=== PATIENT | female | born 1945 | race Caucasian/White ===

== ENCOUNTER 2018-07-15 02:45 | Inpatient (IN) | payer MEDICARE ==
[~2018-07-15] VITALS: Ht 154.9 cm; Wt 60.3 kg
--- NOTE | 2018-07-15 02:55 | NUR ---
PT BIBRA60 FOR SOB X1 DAY, GIVEN ALBUTEROL X1 IN AM, FELT BETTER, THEN FELT SOB AGAIN, CALLED 911, GIVEN ALBUTEROL X1 EN ROUTE. PT IS CURRENTLY 96% RA. PT AAOX4. RESPIRATIONS EVEN AND UNLABORED. BILATERAL WHEEZING NOTED. NAD NOTED. VSS. PT IN GOWN AND PLACED ON MONITOR.
[2018-07-15] MEDS ORDERED: ALBUTEROL FS 2.5 MG/3 ML VIAL.NEB ONE (02:57)
[2018-07-15] MEDS ORDERED: IPRATROPIUM NEB FS 0.5 MG/2.5 ML AMPUL.NEB ONE (02:57)
[2018-07-15] MEDS ORDERED: ALBUTEROL FS 2.5 MG/3 ML VIAL.NEB CONTNEB ONE (03:00)
[2018-07-15] MEDS ORDERED: IPRATROPIUM NEB FS 0.5 MG/2.5 ML AMPUL.NEB NEB ONE (03:00)
--- NOTE | 2018-07-15 03:05 | NUR ---
RT AT BEDSIDE
--- NOTE | 2018-07-15 03:10 | NUR ---
INITIATED IV SITE RIGHT AC 18G. BLOOD OBTAINED. LAVENDER FARM WORKER AT BEDSIDE FOR COLLECTION.
[2018-07-15 03:19] LABS: BASOPHILS % (AUTO) 0.1 % (0.0-2.0); EOSINOPHILS % (AUTO) 3.1 % (0.0-6.0); HEMATOCRIT 27 % (33-45); HEMOGLOBIN 8.9 g/dL (11.5-14.8); LYMPHOCYTES # (AUTO) 0.1 /CMM (0.8-4.8); LYMPHOCYTES % (AUTO) 3.5 % (20.0-44.0); MEAN CORPUSCULAR HEMOGLOBIN 34 PG (26.0-33.0); MEAN CORPUSCULAR HGB CONC 33 g/dl (31.0-36.0); MEAN CORPUSCULAR VOLUME 104 fL (82-100); MONOCYTES # (AUTO) 0.3 /CMM (0.1-1.30); MONOCYTES % (AUTO) 7.7 % (2.0-12.0); NEUTROPHILS % (AUTO) 85.6 % (43.0-81.0); PLATELET COUNT (AUTO) 121 /CMM (150-450); RDW COEFFICIENT OF VARIATION 18.8 (11.5-15.0); WHITE BLOOD COUNT (AUTO) 3.6 K/uL (4.3-11.0)
[2018-07-15 03:27] LABS: CALCIUM, SERUM 8.3 mg/dL (8.5-10.1); CARBON DIOXIDE 27 mmol/L (21-32); CHLORIDE 106 mmol/L (98-107); CREATININE 0.5 mg/dL (0.6-1.3); GLUCOSE 119 mg/dL (74-106); POTASSIUM 3.4 mmol/L (3.5-5.1); SODIUM SERUM 143 mmol/L (136-145); UREA NITROGEN, BLOOD 11 mg/dL (7-18)
[2018-07-15 03:35] LABS: TROPONIN I 0.036 ng/mL (0.00-0.056)
--- NOTE | 2018-07-15 03:35 | NUR ---
RADIOLOGIST AT BEDSIDE FOR CXR
[2018-07-15 03:39] LABS: B-TYPE NATRIURETIC PEPTIDE 6538 PG/ML (0-125)
[2018-07-15] MEDS ORDERED: FUROSEMIDE 20 MG/2 ML VIAL IV ONE (04:00)
[2018-07-15] MEDS ORDERED: FUROSEMIDE 20 MG/2 ML VIAL ONE (04:03)
--- NOTE | 2018-07-15 04:35 | NUR ---
CALLED [facility] FOR PENDING CXR RESULTS. TO BE READ NEXT.
--- NOTE | 2018-07-15 05:07 | NUR ---
CALLED [facility] FOR UPDATE ON CXR REPORT. STATES THEY WILL HAVE IT READ SOON
--- NOTE | 2018-07-15 05:12 | NUR ---
CALLED [facility] PANEL FOR ADMISSION.
--- NOTE | 2018-07-15 05:14 | NUR ---
CALLED RN SUP FOR TELE BED.
--- NOTE | 2018-07-15 05:39 | NUR ---
PT ASSIGNED TO [facility] 113-2
[2018-07-15] MEDS ORDERED: NITROGLYCERIN 0.4 MG/TAB BOTTLE SL PRN (06:00)
[2018-07-15] MEDS ORDERED: AZITHROMYCIN 500 MG in IV D5W 250 ML IV SCH (06:00)
[2018-07-15] MEDS ORDERED: CLONIDINE HCL 0.1 MG TABLET PO PRN ×2 (06:00→08:00)
--- NOTE | 2018-07-15 06:15 | NUR ---
GAVE REPORT TO GEORGE FOR DARSHAN FOR BED 113-2
--- NOTE | 2018-07-15 06:28 | NUR ---
PT TRANSFERRED TO [facility] 113-2 PER [facility]S PROTOCOLS
[2018-07-15 06:30] VITALS: BP 158/87
[2018-07-15] MEDS ORDERED: POTASSIUM CHLORIDE 20 MEQ TAB.PRT.SR PO ONE ×2 (06:30→13:30)
--- NOTE | 2018-07-15 06:30 | NUR ---
PHARMACY TECHNICIAN TRAINEEGRADES 1 THRU 6 HOME TEACHER NOTES: PT ADMITTED FROM ER VIA [facility] WITH A DIAGNOSIS OF CHF/ASTHMA EXACERBATION. ALERT AND ORIENTED X4. ABLE TO MAKE NEEDS KNOWN. NO ACUTE DISTRESS NOTED. DENIES PAIN AND DISCOMFORT. ON O2 2LPM NASAL CANNULA, NO SOB NOTED AT THIS TIME. IV ON RIGHT ANTECUBITAL #18 INTACT AND PATENT, FLUSHING WELL. PT ABLE TO AMBULATE WITH ASSISTANCE. PERTINENT ASSESSMENT DONE. SCAB ON LEFT LOWER LEG NOTED, PICTURE TAKEN AND PLACED ON CHART. BELONGINGS LIST SIGNED. CALL LIGHT PLACED WITHIN REACH. KEPT CLEAN, DRY AND COMFORTABLE. SAFETY AND FALL PRECAUTIONS OBSERVED AND MAINTAINED. WILL ENDORSE TO DAY SHIFT FOR CONTINUITY OF CARE.
[2018-07-15 06:45] LABS: IRON, SERUM 51 ug/dl (50-175); TOTAL IRON BINDING CAPACITY 324 ug/dl (250-450)
[2018-07-15] MEDS: ENOXAPARIN SODIUM 40 MG/0.4 ML DISP.SYRIN SQ SCH (06:53)
[2018-07-15] MEDS ORDERED: POTA8TAB8 PO (07:30)
[2018-07-15] MEDS ORDERED: HYDR-3972 PO (07:30)
[2018-07-15] MEDS ORDERED: FLUT1DIS3 IH (07:30)
[2018-07-15] MEDS ORDERED: PARO40TA4 PO (07:30)
[2018-07-15] MEDS ORDERED: CARV6.252 PO (07:30)
[2018-07-15] MEDS ORDERED: GABA600T2 PO (07:30)
--- NOTE | 2018-07-15 07:45 | NUR ---
TAILOR GARMENT FITTER NOTE: RECEIVED PATIENT IN BED, AWAKE, ALERT AND VERBALLY RESPONSIVE. RESPIRATION EVEN AND UNLABORED, SATURATING 95% W/ O2 2L/MIN VIA NC. PATIENT VERBALIZED PAIN ON HER (R) LOWER BACK /, BUT OF RIGHT NOW SHE VERBALIZED THAT IT WAS TOLERABLE. ON CARPENTER GENERAL, SR HR 92. HOB ELEVATED. CALL LIGHT WITHIN REACH. BEDSIDE COMMODE PRESENT AT THE BEDSIDE. (R) AC IV LINE INTACT AND PATENT. AND WILL FOLLOW-UP WITH THE PHARMACY RE: THE AZITHROMYCIN IV THAT WAS SCHEDULED AT 0600. MEDICATION WAS UNABLE PER PM NURSE DURING CHANGE OF SHIFT REPORT.
[2018-07-15 08:00] VITALS: BP 158/86
[2018-07-15] MEDS: AZITHROMYCIN 500 MG in IV D5W 250 ML IV SCH (08:21)
--- NOTE | 2018-07-15 08:30 | NUR ---
DRIVER GUARD NOTE: INFORMED DR. MIGUEL RE: THE PATIENT'S MEDICATION RECONCILIATION. AND PER MD, HE WILL TAKE CARE OF IT WHEN HE MAKES HIS ROUNDS. PATIENT MADE AWARE.
[2018-07-15] MEDS: IPRATROPIUM NEB FS 0.5 MG/2.5 ML AMPUL.NEB NEB SCH ×3 (08:31→20:26)
[2018-07-15] MEDS: ALBUTEROL FS 2.5 MG/0.5 ML VIAL.NEB NEB SCH ×3 (08:32→20:26)
[2018-07-15] MEDS ORDERED: predniSONE 50 MG TABLET PO SCH (09:00)
[2018-07-15] MEDS ORDERED: FUROSEMIDE 40 MG/4 ML VIAL IV SCH (09:00)
--- NOTE | 2018-07-15 09:34 | NUR ---
INITIAL ECHO SHOWED EF OF 35%~. ADVISED DR. PAZ OF PRELIMINARY RESULTS.
[2018-07-15] MEDS: POTASSIUM CHLORIDE 20 MEQ TAB.PRT.SR PO SCH ×3 (10:40→13:00)
[2018-07-15] MEDS: predniSONE 10 MG TABLET PO SCH (10:40)
[2018-07-15] MEDS: FUROSEMIDE 40 MG/4 ML VIAL IV SCH ×3 (10:40→18:51)
[2018-07-15 11:36] LABS: MAGNESIUM 2.1 mg/dL (1.8-2.4)
[2018-07-15 11:56] LABS: THYROID STIMULATING HORMONE 4.91 uIU/mL (0.358-3.74)
[2018-07-15 12:00] VITALS: BP 145/65
[2018-07-15] MEDS: HYDROCODONE/APAP 5/325MG 1 EACH TABLET PO PRN ×2 (13:41→22:12)
--- NOTE | 2018-07-15 15:56 | NUR ---
PT REFUSED RESP TX AT THIS TIME. NO S/S OF SOB NOTED. WILL CONT TO MONITOR Addendum: 07/15/18 at 1556 by RICH MENDOZA RT Amended: Links added.
[2018-07-15 16:00] VITALS: BP 153/83
[2018-07-15] MEDS: CARVEDILOL 6.25 MG TABLET PO SCH (16:49)
[2018-07-15] MEDS: GABAPENTIN 300 MG CAPSULE PO SCH (16:49)
[2018-07-15] MEDS: POTASSIUM CHLORIDE 10 MEQ TABLET.SA PO SCH (16:49)
[2018-07-15] MEDS ORDERED: FLUTICASONE/SALMETEROL DISKUS IH SCH (17:00)
--- NOTE | 2018-07-15 19:35 | NUR ---
NARROW FABRIC CALENDERER NOTE: PATIENT ON STABLE CONDITION. NO CHANGE OF CONDITION NOTED. REPORT GIVEN TO PM SHIFT NURSE FOR CONTINUITY OF CARE.
[2018-07-15 20:00] VITALS: BP 148/75
--- NOTE | 2018-07-15 20:00 | NUR ---
COMMERCIAL TRAILER TRUCK DRIVER NOTE: RECEIVED PATIENT REPORT FROM AM NURSE. PATIENT IN BED, AWAKE, ALERT AND VERBALLY RESPONSIVE. RESPIRATION EVEN AND UNLABORED, SATURATING 95% W/ O2 2L/MIN VIA NC. PATIENT VERBALIZED PAIN ON HER (R) LOWER BACK 5/10 AND ASKED FOR PAIN MANAGEMENT. ON EXPERIMENTAL MECHANIC SPACECRAFT, SR WITH BBB HR 91. HOB ELEVATED. CALL LIGHT WITHIN REACH. BEDSIDE COMMODE PRESENT AT THE BEDSIDE. (R)WRIST IV LINE INTACT AND PATENT. ALL SAFETY MEASURES ARE IMPLEMENTED, BED IN LOWEST, LOCKED POSITION. WILL CONT. TO MONITOR.
[2018-07-16] VITALS: BP 126/58
[2018-07-16] MEDS: IPRATROPIUM NEB FS 0.5 MG/2.5 ML AMPUL.NEB NEB SCH ×4 (00:55→20:24)
[2018-07-16] MEDS: ALBUTEROL FS 2.5 MG/0.5 ML VIAL.NEB NEB SCH ×4 (00:55→20:24)
[2018-07-16 04:00] VITALS: BP 129/69
[2018-07-16 06:26] LABS: HEMATOCRIT 25 % (33-45); HEMOGLOBIN 8.4 g/dL (11.5-14.8); MEAN CORPUSCULAR HEMOGLOBIN 35 PG (26.0-33.0); MEAN CORPUSCULAR HGB CONC 34 g/dl (31.0-36.0); MEAN CORPUSCULAR VOLUME 103 fL (82-100); PLATELET COUNT (AUTO) 101 /CMM (150-450); RDW COEFFICIENT OF VARIATION 18.2 (11.5-15.0); RED BLOOD CELL COUNT(AUTO) 2.42 MIL/uL (4.0-5.2); WHITE BLOOD COUNT (AUTO) 2.8 K/uL (4.3-11.0)
--- NOTE | 2018-07-16 06:43 | NUR ---
[facility] RN NOTE: PATIENT IN BED RESTING COMFORTABLY. PATIENT ON STABLE CONDITION. NO CHANGE OF CONDITION NOTED DURING MY SHIFT. IV LINE RIGHT AC IS PATIENT, INTACT.REPORT WILL BE GIVEN TO AM SHIFT NURSE FOR CONTINUITY OF CARE.
[2018-07-16 06:46] LABS: ALANINE AMINOTRANSFERASE 22 U/L (12-78); ALKALINE PHOSPHATASE 53 U/L (46-116); ASPARTATE AMINOTRANSFERASE 32 U/L (15-37); BILIRUBIN,TOTAL 0.4 mg/dL (0.2-1.0); CALCIUM, SERUM 8.4 mg/dL (8.5-10.1); CARBON DIOXIDE 30 mmol/L (21-32); CHLORIDE 107 mmol/L (98-107); CREATININE 0.8 mg/dL (0.6-1.3); GLUCOSE 89 mg/dL (74-106); MAGNESIUM 2.1 mg/dL (1.8-2.4); POTASSIUM 3.4 mmol/L (3.5-5.1); SODIUM SERUM 142 mmol/L (136-145); TOTAL PROTEIN, SERUM 6.4 g/dL (6.4-8.2); UREA NITROGEN, BLOOD 23 mg/dL (7-18)
[2018-07-16 06:47] LABS: TROPONIN I 0.028 ng/mL (0.00-0.056)
[2018-07-16 06:55] LABS: CHOLESTEROL 202 mg/dL (<200); HDL CHOLESTEROL 78 mg/dL (40-60); LDL 121 mg/dL (0-99); THYROID STIMULATING HORMONE 1.451 uIU/mL (0.358-3.74); TRIGLYCERIDES 113 mg/dL (30-150)
--- NOTE | 2018-07-16 07:10 | NUR ---
HELICOPTER OFFICER OPENING NOTE RECEIVED PATIENT RESTING IN BED IN STABLE CONDITION, ON OXYGEN VIA NASAL CANNULA AT 2LPM. NO RESPIRATORY DISTRESS NOTED, ABLE TO MAKE NEEDS KNOWN. IV SITE SALINE LOCK ON RIGHT WRIST GAUGE 22. BED LOW AND LOCKED, CALL LIGHT WITHIN REACH, WILL CONTINUE TO MONITOR.
[2018-07-16 08:00] VITALS: BP 141/77
[2018-07-16] MEDS: FLUTICASONE/VILANTEROL 1 EACH BLST.W.DEV IH SCH (08:30)
[2018-07-16] MEDS: AZITHROMYCIN 500 MG in IV D5W 250 ML IV SCH (08:32)
[2018-07-16] MEDS: GABAPENTIN 300 MG CAPSULE PO SCH ×2 (08:33→17:50)
[2018-07-16] MEDS: HYDROCODONE/APAP 5/325MG 1 EACH TABLET PO PRN ×2 (08:33→13:16)
[2018-07-16] MEDS: POTASSIUM CHLORIDE 10 MEQ TABLET.SA PO SCH ×2 (08:33→17:50)
[2018-07-16] MEDS: predniSONE 10 MG TABLET PO SCH (08:34)
[2018-07-16] MEDS: CARVEDILOL 6.25 MG TABLET PO SCH ×2 (08:34→17:51)
[2018-07-16] MEDS: PAROXETINE HCL 20 MG TABLET PO SCH (08:35)
[2018-07-16 09:46] LABS: BAND % (MANUAL) 6 % (0.0-5.0); BASOPHILS % (MANUAL) 0 % (0.0-2.0); EOSINOPHILS % (MANUAL) 0 % (0-4); LYMPHOCYTES % (MANUAL) 6 % (16-48); MONOCYTES % (MANUAL) 12 % (0-11.0); NEUTROPHILS % (MANUAL) 76 (42-76)
[2018-07-16] MEDS: ENOXAPARIN SODIUM 40 MG/0.4 ML DISP.SYRIN SQ SCH (11:54)
[2018-07-16 12:00] VITALS: BP 128/81
[2018-07-16] MEDS ORDERED: POTASSIUM CHLORIDE 20 MEQ TAB.PRT.SR PO SCH (12:00)
[2018-07-16 16:00] VITALS: BP 115/72
--- NOTE | 2018-07-16 19:16 | NUR ---
PAINTER ROUGH NOTES RECEIVED PT ON BED. A/O X 4. ON ROOM NASAL CANNULA 2LPM SATURATING WELL. NO RESPIRATORY DISTRESS NOTED. ON TELE MONITOR SR 85. IV ACCESS ON RIGHT WRIST #22 SALINE LOCK. R UPPER CHEST PERMACATH PATENT AND INTACT. NO SWELLING OR REDNESS NOTED. HEAD OF BED ELEVATED. BED ALARM ON. CALL LIGHT WITHIN REACH. WILL CONTINUE TO MONITOR PT CLOSELY.
--- NOTE | 2018-07-16 19:30 | NUR ---
IMPORT/EXPORT ANALYST CLOSING NOTE PATIENT RESTING IN BED, ABLE TO MAKE NEEDS KNOWN. NO COMPLAINT OF PAIN OR RESPIRATORY DISTRESS NOTED. SINUS RHYTHM WITH BUNDLE BRANCH BLOCK ON PHYSICAL THERAPIST AIDE, HEART RATE IN THE HIGH 80S. IV SITE ON RIGHT WRIST INTACT SALINE LOCK. ON OXYGEN VIA NASAL CANNULA AT 2LPM. HEAD OF BED ELEVATED, BED LOW AND LOCKED, CALL LIGHT WITHIN REACH, WILL ENDORSE TO ONCOMING NURSE FOR CONTINUITY OF CARE.
[2018-07-16 20:00] VITALS: BP 126/66
[2018-07-17] VITALS: BP 139/71
[2018-07-17] MEDS: IPRATROPIUM NEB FS 0.5 MG/2.5 ML AMPUL.NEB NEB SCH ×4 (01:26→19:46)
[2018-07-17] MEDS: ALBUTEROL FS 2.5 MG/0.5 ML VIAL.NEB NEB SCH ×4 (01:26→19:46)
[2018-07-17 04:00] VITALS: BP 134/71
--- NOTE | 2018-07-17 06:43 | NUR ---
DREDGE LEVER OPERATOR NOTES NO ACUTE CHANGES NOTED DURING THE SHIFT. NO RESPIRATORY DISTRESS NOTED. PROVIDED COMFORT AND SAFETY. WILL ENDORSE TO THE AM NURSE FOR CONTINUITY OF CARE.
[2018-07-17 07:05] LABS: CALCIUM, SERUM 8.4 mg/dL (8.5-10.1); CARBON DIOXIDE 28 mmol/L (21-32); CHLORIDE 107 mmol/L (98-107); CREATININE 0.5 mg/dL (0.6-1.3); GLUCOSE 85 mg/dL (74-106); POTASSIUM 3.8 mmol/L (3.5-5.1); SODIUM SERUM 143 mmol/L (136-145); UREA NITROGEN, BLOOD 27 mg/dL (7-18)
[2018-07-17 07:42] LABS: BASOPHILS % (AUTO) 0.2 % (0.0-2.0); EOSINOPHILS % (AUTO) 0.4 % (0.0-6.0); HEMATOCRIT 25 % (33-45); HEMOGLOBIN 8.3 g/dL (11.5-14.8); LYMPHOCYTES # (AUTO) 0.2 /CMM (0.8-4.8); LYMPHOCYTES % (AUTO) 4.8 % (20.0-44.0); MEAN CORPUSCULAR HEMOGLOBIN 34 PG (26.0-33.0); MEAN CORPUSCULAR HGB CONC 33 g/dl (31.0-36.0); MEAN CORPUSCULAR VOLUME 103 fL (82-100); MONOCYTES # (AUTO) 0.7 /CMM (0.1-1.30); MONOCYTES % (AUTO) 15.3 % (2.0-12.0); NEUTROPHILS # (AUTO) 3.9 /CMM (1.8-8.9); NEUTROPHILS % (AUTO) 79.3 % (43.0-81.0); PLATELET COUNT (AUTO) 105 /CMM (150-450); RDW COEFFICIENT OF VARIATION 18.7 (11.5-15.0); RED BLOOD CELL COUNT(AUTO) 2.45 MIL/uL (4.0-5.2); WHITE BLOOD COUNT (AUTO) 4.8 K/uL (4.3-11.0)
[2018-07-17 08:00] VITALS: BP 156/89
--- NOTE | 2018-07-17 08:00 | NUR ---
FLORIST DESIGNER NOTES PATIENT IN BED RESTING ALERT,ORIENTED X3 NO SOB OR ACUTE DISTRESS NOTED. BED IN LOW LOCKED POSITION. CALL LIGHT WITHIN REACH. PERIPHERAL IV INTACT PATENT. WILL CONTINUE TO MONITOR.
[2018-07-17] MEDS: AZITHROMYCIN 500 MG in IV D5W 250 ML IV SCH (08:29)
[2018-07-17] MEDS: GABAPENTIN 300 MG CAPSULE PO SCH ×2 (08:29→16:09)
[2018-07-17] MEDS: CARVEDILOL 6.25 MG TABLET PO SCH ×2 (08:29→16:09)
[2018-07-17] MEDS: POTASSIUM CHLORIDE 10 MEQ TABLET.SA PO SCH ×2 (08:30→16:09)
[2018-07-17] MEDS: FLUTICASONE/VILANTEROL 1 EACH BLST.W.DEV IH SCH (08:30)
[2018-07-17] MEDS: predniSONE 10 MG TABLET PO SCH (08:30)
[2018-07-17] MEDS: PAROXETINE HCL 20 MG TABLET PO SCH (08:34)
[2018-07-17] MEDS: HYDROCODONE/APAP 5/325MG 1 EACH TABLET PO PRN ×2 (08:34→15:45)
[2018-07-17] MEDS: ENOXAPARIN SODIUM 40 MG/0.4 ML DISP.SYRIN SQ SCH (08:37)
[2018-07-17] MEDS ORDERED: FUROSEMIDE 40 MG/4 ML VIAL IV SCH (09:00)
[2018-07-17 10:06] LABS: BAND % (MANUAL) 2 % (0.0-5.0); LYMPHOCYTES % (MANUAL) 2 % (16-48); MONOCYTES % (MANUAL) 14 % (0-11.0); NEUTROPHILS % (MANUAL) 82 (42-76)
[2018-07-17] MEDS: FUROSEMIDE 40 MG TABLET PO SCH (11:59)
[2018-07-17 12:00] VITALS: BP 127/67
[2018-07-17 16:00] VITALS: BP 142/81
--- NOTE | 2018-07-17 16:00 | NUR ---
SHREDDED FILLER CIGAR MAKER MACHINE NOTES PATIENT SEEN AND EVALUATED BY DR. MANN ORDERS NOTED AND CARRIED OUT.
--- NOTE | 2018-07-17 18:46 | NUR ---
CITY ALDERMAN NOTES PATIENT IN BED RESTING ALERT, ORIENTED X3 NO SOB OR ACUTE DISTRESS NOTED. ALL DUE MEDICATIONS ADMINISTERED. ALL NEEDS MET. WILL ENDORSE CARE TO PM SHIFT.
--- NOTE | 2018-07-17 19:26 | NUR ---
VP HOME HEALTH NOTES RECEIVED PT ON BED. A/O X 4. ON NASAL CANNULA 2LPM SATURATING WELL. NO SOB COMPLAINTS AT THIS TIME. ON TELE MONITOR SR 85 WITH INVERTED T WAVE. IV ACCESS ON R WRIST G22 SALINE LOCK. IV ACCESS ON RIGHT UPPER CHEST NANI CATH NO BLEEDING NOTED. HEAD OF BED ELEVATED. SIDE RAILS UP. CALL LIGHT WITHIN REACH. WILL CONTINUE TO MONITOR PT CLOSELY.
[2018-07-17 20:00] VITALS: BP 131/70
[2018-07-18] VITALS: BP 132/62
[2018-07-18] MEDS: IPRATROPIUM NEB FS 0.5 MG/2.5 ML AMPUL.NEB NEB SCH ×2 (01:52→08:10)
[2018-07-18] MEDS: ALBUTEROL FS 2.5 MG/0.5 ML VIAL.NEB NEB SCH ×2 (01:52→08:10)
[2018-07-18 04:00] VITALS: BP 118/73
--- NOTE | 2018-07-18 06:26 | NUR ---
ALLIANCES CONSULTANT NOTES NO ACUTE CHANGES NOTED DURING THE SHIFT. PROVIDED COMFORT AND SAFETY. DUE MEDS GIVEN. WILL ENDORSE TO THE AM NURSE FOR CONTINUITY OF CARE.
[2018-07-18 08:00] VITALS: BP 147/82
[2018-07-18 08:18] VITALS: BP 147/82
[2018-07-18] MEDS: PAROXETINE HCL 20 MG TABLET PO SCH (08:18)
[2018-07-18] MEDS: FUROSEMIDE 40 MG TABLET PO SCH (08:18)
[2018-07-18] MEDS: GABAPENTIN 300 MG CAPSULE PO SCH (08:18)
[2018-07-18] MEDS: predniSONE 10 MG TABLET PO SCH (08:18)
[2018-07-18] MEDS: CARVEDILOL 6.25 MG TABLET PO SCH (08:18)
[2018-07-18] MEDS: POTASSIUM CHLORIDE 10 MEQ TABLET.SA PO SCH (08:18)
[2018-07-18] MEDS: ENOXAPARIN SODIUM 40 MG/0.4 ML DISP.SYRIN SQ SCH (08:19)
[2018-07-18] MEDS: FLUTICASONE/VILANTEROL 1 EACH BLST.W.DEV IH SCH (08:20)
[2018-07-18] MEDS: HYDROCODONE/APAP 5/325MG 1 EACH TABLET PO PRN (08:31)
[2018-07-18] MEDS ORDERED: AZITHROMYCIN 250 MG TABLET PO SCH (09:00)
--- NOTE | 2018-07-18 12:19 | NUR ---
RN NOTE: PATIENT DISCHARGE HOME ALERT AWAKE ORIENTED X4. ON ROOM AIR, NO BREATHING DISTRESS NOTED. WAS ABLE TO AMBULATE WITH WALKER ON ROOM AIR, SPO2>92%. DENIES CHEST PAIN & DISCOMFORT. DISCHARGE INSTRUCTIONS PROVIDED TO THE PATIENT, VERBALIZE TO UNDERSTAND. PRESCRIPTION GIVEN TPO THE PATIENT. PATIENT VERBALIZE TO MAKE AN APPOINTMENT WITH DR. PAZ IN WEEK. CONTACT INFO & ADDRESS PROVIDED. IV CATH REMOVED, APPLIED PRESSURE DRESSING. LEFT FROM FLOOR WITH ALL BELONGINGS WITH PRIMARY CAREGIVER VIA PRIVATE CAR.
== END 2018-07-18 12:18 | disposition home or self-care (01) | DRG 293 ==
LOC: ER 02:49 → TELE1 06:02
PROVIDERS: ADMIT Registered Nurse; ATTEND Registered Nurse
DX: I11.0 Hypertensive heart disease with heart failure (principal); J45.909 Unspecified asthma, uncomplicated; R73.9 Hyperglycemia, unspecified; E87.6 Hypokalemia; I50.21 Acute systolic (congestive) heart failure; Z90.12 Acquired absence of left breast and nipple; D63.8 Anemia in other chronic diseases classified elsewhere; C50.919 Malignant neoplasm of unspecified site of unspecified female breast; Z87.891 Personal history of nicotine dependence
CPT/HCPCS: 36415; 71045-TC; 80048-TC; 80053-TC; 80061-TC; 82728-TC; 83540-TC; 83735-TC; 83880; 84100-TC; 84439-TC; 84443-TC; 84484-TC; 85025-TC; 87081-TC; 93307-TC; 94799-TC; A4606; J0456; J1650; J1940; J7030; J7060; Z7610

== ENCOUNTER 2021-02-18 16:49 | Inpatient (IN) | payer MEDICARE, OTHER ==
[~2021-02-18] VITALS: Ht 152.4 cm; Wt 42.6 kg
[~2021-02-18 16:49] MED LIST: CARV6.252 PO; FLUT1DIS3 IH; GABA600T12 PO; HYDR-3972 PO; PARO40TA4 PO; POTA8TAB8 PO
--- NOTE | 2021-02-18 17:02 | NUR ---
BIB RA 88 FROM [facility]/VOMITING,"PINK VOMITOUS' per staff. PATIENT IS A/OX1, CONFUSED. CURRENTLY NO EPISODE OF VOMITING WHEN ARRIVED IN ER. BURNETT CATHETER NOTED. PATIENT PLACED ON MONITOR, WILL CONTINUE TO MONITOR.
--- NOTE | 2021-02-18 17:50 | NUR ---
IV LINE STARTED IN THE RIGHT UPPER ARM #20G, LABS DRAWN AND SENT TO LAB. URINE SENT TO LAB. IVF STARTED. WILL CONTINUE TO MONITOR.
[2021-02-18 17:53] LABS: BASOPHILS % (AUTO) 0.3 % (0.0-2.0); EOSINOPHILS % (AUTO) 0.1 % (0.0-6.0); HEMATOCRIT 30 % (33-45); HEMOGLOBIN 9.6 g/dL (11.5-14.8); LYMPHOCYTES # (AUTO) 0.3 /CMM (0.8-4.8); LYMPHOCYTES % (AUTO) 1.8 % (20.0-44.0); MEAN CORPUSCULAR HGB CONC 32 g/dl (31.0-36.0); MEAN CORPUSCULAR VOLUME 91 fL (82-100); MONOCYTES # (AUTO) 0.3 /CMM (0.1-1.30); MONOCYTES % (AUTO) 1.8 % (2.0-12.0); NEUTROPHILS # (AUTO) 13.9 /CMM (1.8-8.9); PLATELET COUNT (AUTO) 250 /CMM (150-450); RED BLOOD CELL COUNT(AUTO) 3.33 MIL/uL (4.0-5.2); WHITE BLOOD COUNT (AUTO) 14.5 K/uL (4.3-11.0)
[2021-02-18] MEDS ORDERED: IV NS 0.9% 1,000 ML BAG IV ONE (18:00)
[2021-02-18 18:05] LABS: ALBUMIN 2.7 g/dL (3.4-5.0); BILIRUBIN,DIRECT 0.2 mg/dL (0.0-0.2); BILIRUBIN,TOTAL 0.7 mg/dL (0.2-1.0); CREATININE 0.7 mg/dL (0.6-1.3); POTASSIUM 3.1 mmol/L (3.5-5.1); TOTAL PROTEIN, SERUM 7.8 g/dL (6.4-8.2)
--- NOTE | 2021-02-18 18:10 | NUR ---
MOVE SHEET SUBMITTED AND CALLED FOR MS BED.
--- NOTE | 2021-02-18 18:10 | NUR ---
LAB CALLED CALCIUM 13.1 GODWIN JC MADE AWARE.
[2021-02-18 18:11] LABS: CALCIUM, SERUM 13.1 mg/dL (8.5-10.1)
[2021-02-18] MEDS ORDERED: LIDOCAINE PATCH TD (18:15)
[2021-02-18] MEDS ORDERED: HYDR4TAB57 PO (18:15)
[2021-02-18] MEDS ORDERED: ZINC220C6 PO (18:15)
[2021-02-18] MEDS ORDERED: CRAN425C6 PO (18:15)
[2021-02-18] MEDS ORDERED: ENOX40DI SQ (18:15)
[2021-02-18] MEDS ORDERED: ATOR10TA PO (18:15)
[2021-02-18] MEDS ORDERED: LAMO25TA16 PO (18:15)
[2021-02-18] MEDS ORDERED: AMLO5TAB4 PO (18:15)
[2021-02-18] MEDS ORDERED: POLY17PO4 PO (18:15)
[2021-02-18] MEDS ORDERED: ALBU6.7H9 IH (18:15)
[2021-02-18] MEDS ORDERED: MULT-447 PO (18:15)
[2021-02-18] MEDS ORDERED: BISA10SU11 RC (18:15)
[2021-02-18] MEDS ORDERED: METH10TA2 PO (18:15)
[2021-02-18] MEDS ORDERED: DRON2.5C18 PO (18:15)
[2021-02-18] MEDS ORDERED: ASCO500C17 PO (18:15)
[2021-02-18] MEDS ORDERED: ACET325T53 PO (18:15)
[2021-02-18] MEDS ORDERED: AMIN887L PO (18:15)
[2021-02-18] MEDS ORDERED: DIPH1TAB PO (18:15)
[2021-02-18] MEDS ORDERED: BACL10TA PO (18:15)
[2021-02-18] MEDS ORDERED: CALC-496 PO (18:15)
[2021-02-18] MEDS ORDERED: PARO10TA86 PO (18:15)
--- NOTE | 2021-02-18 18:16 | NUR ---
GOT BED 106
[2021-02-18 18:21] LABS: BILIRUBIN,URINE Negative (NEGATIVE); COLOR,URINE LIGHT YELLOW (YELLOW); LEUKOCYTE ESTERASE ,URINE Moderate (NEGATIVE); NITRITE, URINE Positive (NEGATIVE); PH,URINE 7.5 (5.0-8.0); PROTEIN,URINE Negative (NEGATIVE); UGLUCOSE Negative (NEGATIVE); UROBILINOGEN,URINE 0.2 EU/dL (0.2)
[2021-02-18] MEDS ORDERED: CEFTRIAXONE 1GM BAG (ER ONLY) 50 ML IV ONE ×2 (18:22→18:30)
[2021-02-18 18:27] LABS: BACTERIA,URINE 3+ /HPF (None Seen); SQUAMOUS EPITHELIAL CELL,UR Few /HPF (None Seen); WBC,URINE 21-50 /HPF (0-3)
--- NOTE | 2021-02-18 19:05 | NUR ---
REC'D REPORT FROM GODWIN RAHMAN FOR DARSHAN
--- NOTE | 2021-02-18 19:16 | NUR ---
[facility] CALLED MERCHANDISING REPRESENTATIVE PAGED.
--- NOTE | 2021-02-18 19:32 | NUR ---
COVID SWABS SENT TO LAB
--- NOTE | 2021-02-18 19:37 | NUR ---
GAVE REPORT TO GODWIN SAENZ FOR DARSHAN
--- NOTE | 2021-02-18 19:45 | NUR ---
tele 106
--- NOTE | 2021-02-18 20:00 | NUR ---
CALLED LAB TO FOLLOW UP WITH RAPID COVID RESULT.
--- NOTE | 2021-02-18 20:11 | NUR ---
RN NOTE RECEIVED PATIENT FROM ER VIA [facility]UR[facility]; ADMITTING DIAGNOSIS OF ALTERED MENTAL STATUS AND UTI, COVID RAPID TEST NEGATIVE, PCR IS PENDING. PATIENT AO X 1, DENIES PAIN, NO S/SX OF ACUTE DISTRESS AT THIS TIME. PATIENT'S BREATHING IS EVEN AND UNLABORED, ON 2 L OF OXYGEN VIA NC, SATURATION AT 97%, HR IS 85. NOTED IV SITE AT R AC 20G, PATENT AND FLUSHING WELL, , NO S/S OF INFECTION OR INFILTRATION. NOTED PORTACATH AT R UPPER CHEST. NOTED REDNESS AT SACRUM AND B HEELS, RASHES AT B BUTTOCKS, AND POST SURGICAL WOUND AT L HIP WITH WOUND DRESSING INTACT. PHOTOS TAKEN AND PLACED IN CHART. WOUND CONSULT REQUESTED. PATIENT KEPT CLEAN, DRY AND COMFORTABLE. SAFETY MEASURES IMPLEMENTED. PATIENT BED ALARM IS ON. HEAD OF BED ELEVATED. BED IS LOCKED, IN LOWEST POSITION AND SIDE RAILS UP. CALL LIGHT WITHIN REACH OF THE PATIENT. ISOLATION PRECAUTIONS IN PLACE. WILL CONTINUE TO MONITOR AND REASSESS FOR ANY CHANGES. WILL ATTEND TO ALL MD ADMITTING ORDERS.
[2021-02-18] MEDS ORDERED: MAG HYDROX/AL HYDROX/SIMETH 30 ML UDC PO PRN (20:30)
[2021-02-18] MEDS ORDERED: ACETAMINOPHEN 325 MG TABLET PO PRN (20:30)
[2021-02-18] MEDS ORDERED: ZOLPIDEM TARTRATE 5 MG TABLET PO PRN (20:30)
[2021-02-18] MEDS ORDERED: Z GUARD REMEDY 2 OZ OINT TP PRN (20:30)
[2021-02-18] MEDS ORDERED: MAGNESIUM HYDROXIDE 30 ML UDC PO PRN (20:30)
[2021-02-18] MEDS ORDERED: HYDROCODONE/APAP 5/325MG TABLET PO PRN (20:30)
[2021-02-18] MEDS ORDERED: ONDANSETRON HCL/PF 4 MG/2 ML VIAL IVP PRN (20:30)
--- NOTE | 2021-02-18 21:00 | NUR ---
RN NOTE TELEPHONE CALL TO [facility], SPOKE WITH SARY, VERIFIED PATIENT HAD A RECENT SURGERY FOR THE LEFT HIP PATHOLOGICAL FRACTURE AT [facility], BUT DOES NOT HAVE INFORMATION REGARDING SPECIFIC PROCEDURE PERFORMED. LICENSED SOCIAL WORKER MADE AWARE.
[2021-02-18] MEDS: IV 1/2NS 1000 ML 1,000 ML IV PRN (21:20)
[2021-02-18] MEDS: ENOXAPARIN SODIUM 40 MG/0.4 ML DISP.SYRIN SQ SCH (21:21)
[2021-02-18 21:38] VITALS: BP 135/68
[2021-02-19] MEDS ORDERED: POLYETHYLENE GLYCOL 3350 17 GM POWD.PACK PO PRN (01:00)
[2021-02-19] MEDS ORDERED: POTASSIUM CHLORIDE 20 MEQ TAB.PRT.SR PO ONE (01:00)
[2021-02-19] MEDS ORDERED: DIPHENOXYLATE HCL/ATROP SULF 1 UDTAB TABLET PO PRN (01:00)
[2021-02-19] MEDS ORDERED: BISACODYL SUPP (10 MG) 10 MG/SUPP.RECT SUPP.RECT RC PRN (01:00)
[2021-02-19] MEDS ORDERED: BACLOFEN (10 MG) 10 MG TABLET PO PRN (01:00)
[2021-02-19] MEDS ORDERED: ALBUTEROL FS 2.5 MG/3 ML VIAL.NEB NEB PRN (01:30)
[2021-02-19 04:00] VITALS: BP 124/66
[2021-02-19] MEDS: METHADONE HCL 10 MG TABLET PO SCH ×3 (04:37→21:29)
[2021-02-19 06:33] LABS: BASOPHILS % (AUTO) 0.2 % (0.0-2.0); EOSINOPHILS % (AUTO) 0.1 % (0.0-6.0); HEMATOCRIT 25 % (33-45); HEMOGLOBIN 8.1 g/dL (11.5-14.8); LYMPHOCYTES # (AUTO) 0.6 /CMM (0.8-4.8); LYMPHOCYTES % (AUTO) 4.8 % (20.0-44.0); MEAN CORPUSCULAR HGB CONC 32 g/dl (31.0-36.0); MEAN CORPUSCULAR VOLUME 91 fL (82-100); MONOCYTES # (AUTO) 0.5 /CMM (0.1-1.30); MONOCYTES % (AUTO) 3.8 % (2.0-12.0); NEUTROPHILS # (AUTO) 10.8 /CMM (1.8-8.9); NEUTROPHILS % (AUTO) 91.1 % (43.0-81.0); PLATELET COUNT (AUTO) 187 /CMM (150-450); RED BLOOD CELL COUNT(AUTO) 2.76 MIL/uL (4.0-5.2); WHITE BLOOD COUNT (AUTO) 11.8 K/uL (4.3-11.0)
[2021-02-19 06:44] LABS: CALCIUM, SERUM 11.8 mg/dL (8.5-10.1); CARBON DIOXIDE 32 mmol/L (21-32); CHLORIDE 103 mmol/L (98-107); CREATININE 0.5 mg/dL (0.6-1.3); GLUCOSE 88 mg/dL (74-106); PHOSPHORUS 2.7 mg/dL (2.5-4.9); POTASSIUM 3.5 mmol/L (3.5-5.1); SODIUM SERUM 141 mmol/L (136-145); UREA NITROGEN, BLOOD 15 mg/dL (7-18)
[2021-02-19 06:54] LABS: CHOLESTEROL 125 mg/dL (<200); HDL CHOLESTEROL 51 mg/dL (40-60); LDL 60 mg/dL (0-99); THYROID STIMULATING HORMONE 1.211 uIU/mL (0.358-3.74); TRIGLYCERIDES 97 mg/dL (30-150)
--- NOTE | 2021-02-19 07:13 | NUR ---
RN NOTE PATIENT REMAINS STABLE, NO SIGN OF ACUTE DISTRESS, BREATHING IS EVEN AND UNLABORED, SATURATION 99% ON 2L VIA NC. 0.45 NS INFUSING AT 75 ML/HR VIA RAC 20G. APPROPRIATE ISOLATION PRECAUTION MAINTAINED PENDING COVID PCR RESULT. ASPIRATION AND SAFETY MEASURES IN PLACE. PATIENT BED IS LOCKED AND IN LOWEST POSITION. SIDE RAILS UP. CALL LIGHT WITHIN REACH OF THE PATIENT. WILL ENDORSE TO FLOWER CONNELLY FOR CONTINUATION OF CARE.
--- NOTE | 2021-02-19 07:40 | NUR ---
RN OPENING NOTE PATIENT IS CURRENTLY IN BED WITH HOB AT SEMI FOWLERS POSITION PATIENT IS ON 2L NC WITH NO SIGNS OF LABORED BREATHING. PATIENT IS AOX2-3. LEFT HIP OPEN WOUND, SACRAL REDNESS, AND BILATERAL HEEL REDNESS ARE NOTED. RAC#20 IS PATENT AND INTACT. BED IS LOCKED IN THE LOWEST POSITION, 3 GUARD RAILS RAISED, CALL GUZMAN WITHIN REACH, AND ALL HOSPITAL SAFETY PRECAUTIONS ARE BEING FOLLOWED. WILL CONTINUE TO MONITOR THROUGHOUT SHIFT.
[2021-02-19 08:00] VITALS: BP 144/67
[2021-02-19] MEDS ORDERED: ALBUTEROL SULFATE 8 GM HFA.AER.AD IH PRN (08:00)
[2021-02-19] MEDS: LIDOCAINE 5% (PATCH) 1 EA PATCH TP SCH (08:11)
[2021-02-19] MEDS: DRONABINOL (2.5 MG) 2.5 MG CAPSULE PO SCH ×3 (08:12→16:59)
[2021-02-19] MEDS: ASCORBIC ACID 500 MG TABLET PO SCH (08:12)
[2021-02-19] MEDS: CALCIUM CARB 600MG /VIT D 1 EACH TABLET PO SCH (08:12)
[2021-02-19] MEDS: MULTIVIT W/MINERALS 1 TAB TABLET PO SCH (08:12)
[2021-02-19] MEDS: CARVEDILOL 6.25 MG TABLET PO SCH ×2 (08:12→21:00)
[2021-02-19] MEDS: ZINC SULFATE 220 MG CAPSULE PO SCH (08:13)
[2021-02-19] MEDS: PAROXETINE HCL 10 MG TABLET PO SCH (08:13)
[2021-02-19] MEDS: AMLODIPINE BESYLATE 5 MG TABLET PO SCH (08:13)
[2021-02-19] MEDS: PANTOPRAZOLE 40 MG TABLET.DR PO SCH (08:13)
[2021-02-19] MEDS: PROSOURCE / PROSTAT (PYXIS) 30 ML UDC PO SCH ×2 (08:14→17:00)
[2021-02-19] MEDS ORDERED: Medication Not On Formulary EA (Cranberry Extract (Cranberry) 425 MG) PO SCH (09:00)
[2021-02-19] MEDS: FLUTICASONE/VILANTEROL 1 EACH BLST.W.DEV IH SCH (09:16)
--- NOTE | 2021-02-19 09:43 | NUR ---
WOUND CARE CONSULT: REVIEWED CHART, NURSING DOCUMENTATION AND PHOTOS WHICH INDICATE WOUNDS TO LEFT HIP AND INTACT DEEP TISSUE INJURY TO SACRUM, PRESENT ON ADMISSION. RECOMMENDATIONS MADE FOR SKIN PROTECTION. DISCUSSED WITH NURSING STAFF. DR GERARDO NOTIFIED OF SURGICAL CONSULT REQUEST. MD IN AGREEMENT WITH PLAN OF CARE.
[2021-02-19] MEDS: IV 1/2NS 1000 ML 1,000 ML IV PRN (13:11)
[2021-02-19 16:00] VITALS: BP 112/56
[2021-02-19] MEDS: ENSURE ENLIVE 237 ML LIQUID (VANILLA) PO SCH (17:00)
[2021-02-19] MEDS: CEFTRIAXONE 1 G in IV D5W 50 ML IV SCH (17:00)
--- NOTE | 2021-02-19 18:28 | NUR ---
RN CLOSING NOTE PATIENT IS CURRENTLY IN BED WITH HOB AT SEMI FOWLERS POSITION PATIENT IS ON 2L NC WITH NO SIGNS OF LABORED BREATHING. PATIENT IS AOX2-3. RAC#20 IS PATENT AND INTACT. BED IS LOCKED IN THE LOWEST POSITION, 3 GUARD RAILS RAISED, CALL GUZMAN WITHIN REACH, AND ALL HOSPITAL SAFETY PRECAUTIONS ARE BEING FOLLOWED. ALL DUE MEDS GIVEN AND PATIENT REMAINED STABLE THROUGHOUT SHIFT. WILL ENDORSE TO ICE DELIVERY DRIVER RN FOR DARSHAN.
--- NOTE | 2021-02-19 19:40 | NUR ---
RN NOTES RECEIVED PT IN BED ALERT, ON O2 VIA NC AT 2 LPM. DENIES SOB. NO SIGNS OF DISTRESS NOTED. HOB ELEVATED. IVF 0.45 NS RUNNING AT 75ML/HR, IV PATENT AND INTACT. BURNETT IN PLACE, DRAINING URINE BY GRAVITY. LEFT HIP AND SACRUM DRESSING CLEAN DRY AND INTACT. ALL SAFETY MEASURES IMPLEMENTED PER PROTOCOL. CALL LIGHT WITHIN REACH BED LOCKED IN LOWEST POSITION, SIDE RAILS UP X 2.
[2021-02-19 20:00] VITALS: BP 99/60
[2021-02-19] MEDS: LamoTRIgine 25 MG TABLET PO SCH (21:27)
[2021-02-19] MEDS: ATORVASTATIN 10 MG TABLET PO SCH (21:29)
[2021-02-19] MEDS: ENOXAPARIN SODIUM 40 MG/0.4 ML DISP.SYRIN SQ SCH (21:30)
[2021-02-20 04:00] VITALS: BP 101/53
[2021-02-20] MEDS: IV 1/2NS 1000 ML 1,000 ML IV PRN (05:13)
[2021-02-20] MEDS: METHADONE HCL 10 MG TABLET PO SCH ×3 (05:15→21:05)
[2021-02-20 05:59] LABS: BASOPHILS % (AUTO) 0.2 % (0.0-2.0); EOSINOPHILS % (AUTO) 0.7 % (0.0-6.0); HEMATOCRIT 24 % (33-45); HEMOGLOBIN 7.9 g/dL (11.5-14.8); LYMPHOCYTES # (AUTO) 0.6 /CMM (0.8-4.8); LYMPHOCYTES % (AUTO) 9.9 % (20.0-44.0); MEAN CORPUSCULAR HGB CONC 33 g/dl (31.0-36.0); MEAN CORPUSCULAR VOLUME 91 fL (82-100); MONOCYTES # (AUTO) 0.6 /CMM (0.1-1.30); NEUTROPHILS # (AUTO) 4.9 /CMM (1.8-8.9); NEUTROPHILS % (AUTO) 80.2 % (43.0-81.0); PLATELET COUNT (AUTO) 179 /CMM (150-450); RED BLOOD CELL COUNT(AUTO) 2.66 MIL/uL (4.0-5.2); WHITE BLOOD COUNT (AUTO) 6.2 K/uL (4.3-11.0)
--- NOTE | 2021-02-20 06:39 | NUR ---
RN NOTE PT REMAINS IN BED. TOLERATING O2 AT 2LPM. NO SIGNS OF DISTRESS NOTED. DENIES SOB. WOUND DRESSINGS INTACT. BURNETT DRAINING WELL. ALL NEEDS ATTENDED, NO SIGNIFICANT CHANGES THROUGHOUT SHIFT. REMAIN AFEBRILE. CONTINUE ON IVF 0.45 NS AT 75 ML/HR. NO SIGNS OF INFILTRATION NOTED. ALL SAFETY MEASURES MAINTAINED. CALL LIGHT WITHIN REACH AT ALL TIMES. WILL ENDORSE TO NEXT SHIFT NURSE FOR DARSHAN.
[2021-02-20 06:40] LABS: ALANINE AMINOTRANSFERASE 9 U/L (12-78); ALBUMIN 2.2 g/dL (3.4-5.0); ALKALINE PHOSPHATASE 79 U/L (46-116); ASPARTATE AMINOTRANSFERASE 72 U/L (15-37); BILIRUBIN,TOTAL 0.3 mg/dL (0.2-1.0); CALCIUM, SERUM 11.7 mg/dL (8.5-10.1); CARBON DIOXIDE 30 mmol/L (21-32); CHLORIDE 101 mmol/L (98-107); CREATININE 0.5 mg/dL (0.6-1.3); GLUCOSE 79 mg/dL (74-106); MAGNESIUM 1.8 mg/dL (1.8-2.4); PHOSPHORUS 2.1 mg/dL (2.5-4.9); POTASSIUM 3.2 mmol/L (3.5-5.1); SODIUM SERUM 135 mmol/L (136-145); TOTAL PROTEIN, SERUM 6.5 g/dL (6.4-8.2); UREA NITROGEN, BLOOD 16 mg/dL (7-18)
--- NOTE | 2021-02-20 07:52 | NUR ---
RN Opening note Received patient in bed AO x 2, able to responds all stimuli. Skin is warm to touch, keep clean/dry, intact IV site. Respiratory even and unlabored with oxygen at 2LPM. Kept elevated HOB for endure airway and aspiration precaution, also lowest bed position for safety. Call light within reach, will continue to monitor.
[2021-02-20] MEDS: PANTOPRAZOLE 40 MG TABLET.DR PO SCH (08:01)
[2021-02-20] MEDS: DRONABINOL (2.5 MG) 2.5 MG CAPSULE PO SCH ×3 (08:01→17:10)
[2021-02-20] MEDS: CALCIUM CARB 600MG /VIT D 1 EACH TABLET PO SCH (08:32)
[2021-02-20] MEDS: MULTIVIT W/MINERALS 1 TAB TABLET PO SCH (08:32)
[2021-02-20] MEDS: ZINC SULFATE 220 MG CAPSULE PO SCH (08:32)
[2021-02-20] MEDS: ASCORBIC ACID 500 MG TABLET PO SCH (08:32)
[2021-02-20] MEDS: CARVEDILOL 6.25 MG TABLET PO SCH ×2 (08:33→21:06)
[2021-02-20] MEDS: AMLODIPINE BESYLATE 5 MG TABLET PO SCH (08:33)
[2021-02-20] MEDS: LIDOCAINE 5% (PATCH) 1 EA PATCH TP SCH (08:33)
[2021-02-20] MEDS: PAROXETINE HCL 10 MG TABLET PO SCH (08:33)
[2021-02-20] MEDS: ENSURE ENLIVE 237 ML LIQUID (VANILLA) PO SCH ×3 (08:35→17:07)
[2021-02-20] MEDS: PROSOURCE / PROSTAT (PYXIS) 30 ML UDC PO SCH ×2 (08:36→17:07)
[2021-02-20] MEDS: FLUTICASONE/VILANTEROL 1 EACH BLST.W.DEV IH SCH (08:38)
[2021-02-20] MEDS: POTASSIUM CHLORIDE 20 MEQ TAB.PRT.SR PO SCH ×2 (11:33→12:05)
[2021-02-20] MEDS: IV NS 0.9% 1,000 ML IV PRN (12:51)
[2021-02-20] MEDS ORDERED: K PHOS NEUTRAL 250 MG TABLET PO ONE (13:00)
[2021-02-20] MEDS: CEFTRIAXONE 1 G in IV D5W 50 ML IV SCH (17:10)
--- NOTE | 2021-02-20 18:25 | NUR ---
RN CLOSE NOTE PATIENT IN BED, AO X 2-3, DOES NO APPEARS DISTRESS OR PAIN. SKIN IS WARM TO TOUCH, KEEP CLEAN/DRY, INTACT IV SITE ON RIGHT AC G 20 WITH IVF, NO ADVERSE REACTION OBSERVED FROM IV ATB. ENCOURAGE ORAL FLUID IN TAKE TOLERATED. KEPT ELEVATED HOB FOR ENSURE AIRWAY AND ASPIRATION PRECAUTION AND LOWEST BED POSITION FOR SAFETY. CALL LIGHT WITHIN REACH, WILL CONTINUE TO MONITOR.
--- NOTE | 2021-02-20 20:00 | NUR ---
RN NOTE RECEIVED PT IN BED, A/O X2, ON 2 L VIA NC SATING 97%, HAS UNLABORED BREATHING. SAFETY MEASURES IN PLACE.
[2021-02-20] MEDS: ATORVASTATIN 10 MG TABLET PO SCH (21:04)
[2021-02-20] MEDS: LamoTRIgine 25 MG TABLET PO SCH (21:05)
[2021-02-20] MEDS: ENOXAPARIN SODIUM 40 MG/0.4 ML DISP.SYRIN SQ SCH (21:06)
[2021-02-21] MEDS: IV NS 0.9% 1,000 ML IV PRN ×3 (01:10→22:17)
[2021-02-21] MEDS: METHADONE HCL 10 MG TABLET PO SCH ×3 (05:09→21:24)
[2021-02-21 06:42] LABS: CALCIUM, SERUM 10.6 mg/dL (8.5-10.1); CARBON DIOXIDE 32 mmol/L (21-32); CHLORIDE 105 mmol/L (98-107); CREATININE 0.5 mg/dL (0.6-1.3); GLUCOSE 96 mg/dL (74-106); PHOSPHORUS 1.8 mg/dL (2.5-4.9); POTASSIUM 3.5 mmol/L (3.5-5.1); SODIUM SERUM 141 mmol/L (136-145); UREA NITROGEN, BLOOD 16 mg/dL (7-18)
[2021-02-21 07:06] LABS: PTH, INTACT 6 pg/mL (15-65)
--- NOTE | 2021-02-21 07:19 | NUR ---
RN NOTE REPORT GIVEN TO INCOMING SHIFT FOR DARSHAN.
[2021-02-21] MEDS: PANTOPRAZOLE 40 MG TABLET.DR PO SCH (07:27)
[2021-02-21] MEDS: DRONABINOL (2.5 MG) 2.5 MG CAPSULE PO SCH ×3 (07:27→16:59)
[2021-02-21 08:00] VITALS: BP 148/67
[2021-02-21] MEDS: MULTIVIT W/MINERALS 1 TAB TABLET PO SCH (08:25)
[2021-02-21] MEDS: CALCIUM CARB 600MG /VIT D 1 EACH TABLET PO SCH (08:25)
[2021-02-21] MEDS: ASCORBIC ACID 500 MG TABLET PO SCH (08:25)
[2021-02-21] MEDS: ZINC SULFATE 220 MG CAPSULE PO SCH (08:25)
[2021-02-21] MEDS: PAROXETINE HCL 10 MG TABLET PO SCH (08:26)
[2021-02-21] MEDS: LIDOCAINE 5% (PATCH) 1 EA PATCH TP SCH (08:26)
[2021-02-21] MEDS: CARVEDILOL 6.25 MG TABLET PO SCH ×2 (08:26→21:25)
[2021-02-21] MEDS: AMLODIPINE BESYLATE 5 MG TABLET PO SCH (08:26)
[2021-02-21] MEDS: ENSURE ENLIVE 237 ML LIQUID (VANILLA) PO SCH ×3 (09:48→16:59)
[2021-02-21] MEDS: PROSOURCE / PROSTAT (PYXIS) 30 ML UDC PO SCH ×2 (09:48→16:59)
[2021-02-21] MEDS: FLUTICASONE/VILANTEROL 1 EACH BLST.W.DEV IH SCH (09:48)
--- NOTE | 2021-02-21 13:34 | NUR ---
RN NOTE PLEASE CONTACT AURELIA WITH ANY UPDATES.
[2021-02-21] MEDS ORDERED: K PHOS NEUTRAL 250 MG TABLET PO ONE (14:00)
[2021-02-21 16:00] VITALS: BP 132/59
[2021-02-21] MEDS: CEFTRIAXONE 1 G in IV D5W 50 ML IV SCH (17:00)
--- NOTE | 2021-02-21 18:34 | NUR ---
RN CLOSING NOTE PATIENT IS CURRENTLY IN BED WITH HOB AT SEMI FOWLERS POSITION. PATIENT IS ON 2L NC WITH NO SIGNS OF LABORED BREATHING. PATIENT IS AOX1. LEFT HIP OPEN WOUND, SACRAL REDNESS, AND BILATERAL HEEL REDNESS ARE NOTED. RAC#20 IS PATENT AND INTACT. BED IS LOCKED IN THE LOWEST POSITION, 3 GUARD RAILS RAISED, CALL GUZMAN WITHIN REACH, AND ALL HOSPITAL SAFETY PRECAUTIONS ARE BEING FOLLOWED. ALL DUE MEDS GIVEN AND PATIENT REMAINED STABLE THROUGHOUT SHIFT. WILL ENDORSE TO EXTRUSION LINE OPERATOR RN FOR DARSHAN.
--- NOTE | 2021-02-21 20:00 | NUR ---
RN NOTE RECEIVED PT IN BED, A/O X2, ON 2 L VIA NC SATING 97TO 98%%, HAS UNLABORED BREATHING. SAFETY MEASURES IN PLACE.
[2021-02-21] MEDS: ATORVASTATIN 10 MG TABLET PO SCH (21:24)
[2021-02-21] MEDS: LamoTRIgine 25 MG TABLET PO SCH (21:24)
[2021-02-21] MEDS: ENOXAPARIN SODIUM 40 MG/0.4 ML DISP.SYRIN SQ SCH (21:28)
--- NOTE | 2021-02-21 23:46 | NUR ---
NOTICED FC IS NOT DRAINING AND BAG HAS HEMATURIA OF 100 ML, NOTIFIED DR KAYE RECEIVED IRRIGATION ORDER.
--- NOTE | 2021-02-22 01:46 | NUR ---
PER DR KAYE DC LOVENOX DUE TO HEMATURIA.
[2021-02-22 04:00] VITALS: BP 147/64
[2021-02-22] MEDS: METHADONE HCL 10 MG TABLET PO SCH ×3 (05:05→20:45)
--- NOTE | 2021-02-22 07:30 | NUR ---
RN NOTE Patient is alert and oriented x 1. Patient is breathing even and unlabored. on 02 2litesr via n/c with 02 sat of 98%. Patient is noted with right forearm 22 gauze IV access NOTED WITH RIGHT FOREARM 22 GAUZE WITH NORMAL SALINE OF 75 ML/HOUR. Bed is in lowest and locked position. Carreon cath noted with red tinged urine. No clots noted. Patient will be monitored. Call light within reach.
--- NOTE | 2021-02-22 07:31 | NUR ---
RN NOTE REPORT GIVEN TO DAY SHIFT NURSE FOR DARSHAN.
[2021-02-22 08:00] VITALS: BP 112/56
[2021-02-22] MEDS: AMLODIPINE BESYLATE 5 MG TABLET PO SCH (08:57)
[2021-02-22] MEDS: PANTOPRAZOLE 40 MG TABLET.DR PO SCH (08:58)
[2021-02-22] MEDS: ASCORBIC ACID 500 MG TABLET PO SCH (08:58)
[2021-02-22] MEDS: PAROXETINE HCL 10 MG TABLET PO SCH (08:58)
[2021-02-22] MEDS: CALCIUM CARB 600MG /VIT D 1 EACH TABLET PO SCH (08:58)
[2021-02-22] MEDS: CARVEDILOL 6.25 MG TABLET PO SCH ×2 (08:58→20:45)
[2021-02-22] MEDS: ZINC SULFATE 220 MG CAPSULE PO SCH (08:59)
[2021-02-22] MEDS: MULTIVIT W/MINERALS 1 TAB TABLET PO SCH (08:59)
[2021-02-22] MEDS: LIDOCAINE 5% (PATCH) 1 EA PATCH TP SCH (09:00)
[2021-02-22] MEDS: PROSOURCE / PROSTAT (PYXIS) 30 ML UDC PO SCH ×2 (09:01→18:08)
[2021-02-22] MEDS: FLUTICASONE/VILANTEROL 1 EACH BLST.W.DEV IH SCH (09:01)
[2021-02-22] MEDS: ENSURE ENLIVE 237 ML LIQUID (VANILLA) PO SCH ×3 (09:01→18:07)
[2021-02-22] MEDS: DRONABINOL (2.5 MG) 2.5 MG CAPSULE PO SCH ×3 (09:15→18:07)
[2021-02-22] MEDS: IV NS 0.9% 1,000 ML IV PRN (11:44)
[2021-02-22 12:06] LABS: *SPE A/G RATIO 0.7 (0.7-1.7); *SPE ALBUMIN 2.4 g/dL (2.9-4.4); *SPE ALPHA-1-GLOBULIN 0.5 g/dL (0.0-0.4); *SPE ALPHA-2-GLOBULIN 0.8 g/dL (0.4-1.0); *SPE GLOBULIN, TOTAL 3.5 g/dL (2.2-3.9); *SPE M-SPIKE Not Observed g/dL (Not Observed); *SPEGAMMA GLOBULIN 1.2 g/dL (0.4-1.8)
[2021-02-22 16:00] VITALS: BP 112/48
[2021-02-22] MEDS: CEFTRIAXONE 1 G in IV D5W 50 ML IV SCH (18:07)
--- NOTE | 2021-02-22 19:23 | NUR ---
RN CLOSING NOTE Patient is alert and oriented x2. Patient is breathing even and unlabored. on 02 2litesr via n/c with 02 sat of 99%. Patient is noted with right forearm 22 gauze IV access NOTED WITH RIGHT FOREARM 22 GAUZE WITH NORMAL SALINE OF 75 ML/HOUR. Bed is in lowest and locked position. Patient will be monitored. Call light within reach.
--- NOTE | 2021-02-22 19:30 | NUR ---
RN OPENING NOTE RECEIVED PATIENT IN BED RESTING ALERT ORIENTED X1 VERBALLY RESPONSIVE ON 2L OXYGEN VIA NASAL CANNULA,O2:98% IV SITE IS ON RIGHT FOREARM INTACT PATIENT IV HYDRATION NS RUNNING 75CC/HR BURNETT CATHETER IN PLACE,URINE BLOODY AND RED, BED IN LOW POSITON AND LOCKED,CALL LIGHT WITHIN REACH,SAFETY MEASURE IMPLEMENT CONTINUE TO MONITOR.
[2021-02-22] MEDS: LamoTRIgine 25 MG TABLET PO SCH (22:14)
[2021-02-22] MEDS: ATORVASTATIN 10 MG TABLET PO SCH (22:14)
[2021-02-23] VITALS: BP 118/62
[2021-02-23] MEDS: IV NS 0.9% 1,000 ML IV PRN (01:37)
[2021-02-23] MEDS: METHADONE HCL 10 MG TABLET PO SCH ×2 (04:58→12:57)
[2021-02-23 06:19] LABS: BASOPHILS % (AUTO) 0.6 % (0.0-2.0); HEMATOCRIT 23 % (33-45); HEMOGLOBIN 7.3 g/dL (11.5-14.8); LYMPHOCYTES # (AUTO) 0.6 /CMM (0.8-4.8); LYMPHOCYTES % (AUTO) 15.5 % (20.0-44.0); MEAN CORPUSCULAR HGB CONC 33 g/dl (31.0-36.0); MEAN CORPUSCULAR VOLUME 91 fL (82-100); MONOCYTES # (AUTO) 0.6 /CMM (0.1-1.30); MONOCYTES % (AUTO) 15.8 % (2.0-12.0); NEUTROPHILS # (AUTO) 2.7 /CMM (1.8-8.9); NEUTROPHILS % (AUTO) 66.1 % (43.0-81.0); PLATELET COUNT (AUTO) 154 /CMM (150-450); RED BLOOD CELL COUNT(AUTO) 2.47 MIL/uL (4.0-5.2); WHITE BLOOD COUNT (AUTO) 4.1 K/uL (4.3-11.0)
--- NOTE | 2021-02-23 06:35 | NUR ---
RN OPENING NOTE PATIENT REMAINS ALERT ORIENTED X1 VERBALLY RESPONSIVE NO SOB NOT ACUTE DISTRESS NOTED,SHE IS ON 2L OXYGEN VIA NASAL CANNULA,O2:98% IV SITE IS ON RIGHT FOREARM INTACT PATENT ON IV HYDRATION NS @75CC/HR.BURNETT CATHETER IN PLACE URINE DRAINING LIGHT PINK COLOR AND CLEAR, ALL DUE MEDS GIVEN MD ORDERED KEEP CLEAN AND DRY ALL THE TIME,KEEP COMFORTABLE,ALL NEEDS MET ENDORSE NEXT COMING SHIFT FOR CONTINUATION OF CARE. Addendum: 02/23/21 at 0648 by PHYLLIS BACA RN RN CLOSING NOTE PATIENT REMAINS ALERT ORIENTED X1 VERBALLY RESPONSIVE NO SOB NOT ACUTE DISTRESS NOTED,SHE IS ON 2L OXYGEN VIA NASAL CANNULA,O2:98% IV SITE IS ON RIGHT FOREARM INTACT PATENT ON IV HYDRATION NS @75CC/HR.BURNETT CATHETER IN PLACE URINE DRAINING LIGHT PINK COLOR AND CLEAR, ALL DUE MEDS GIVEN MD ORDERED KEEP CLEAN AND DRY ALL THE TIME,KEEP COMFORTABLE,ALL NEEDS MET ENDORSE NEXT COMING SHIFT FOR CONTINUATION OF CARE.
[2021-02-23 06:38] LABS: CALCIUM, SERUM 9.4 mg/dL (8.5-10.1); CARBON DIOXIDE 35 mmol/L (21-32); CHLORIDE 104 mmol/L (98-107); CREATININE 0.4 mg/dL (0.6-1.3); GLUCOSE 78 mg/dL (74-106); MAGNESIUM 1.9 mg/dL (1.8-2.4); PHOSPHORUS 1.8 mg/dL (2.5-4.9); SODIUM SERUM 141 mmol/L (136-145); UREA NITROGEN, BLOOD 15 mg/dL (7-18)
[2021-02-23 07:14] LABS: POTASSIUM 2.8 mmol/L (3.5-5.1)
[2021-02-23 08:00] VITALS: BP 142/61
[2021-02-23] MEDS ORDERED: POTASSIUM PHOSPHATE MM 15 MMOL in IV NS 0.9% 250 ML IV SCH (08:00)
[2021-02-23] MEDS: PANTOPRAZOLE 40 MG TABLET.DR PO SCH (08:25)
[2021-02-23] MEDS: DRONABINOL (2.5 MG) 2.5 MG CAPSULE PO SCH ×3 (08:32→17:46)
[2021-02-23] MEDS: LIDOCAINE 5% (PATCH) 1 EA PATCH TP SCH ×2 (09:00→09:34)
[2021-02-23] MEDS: POTASSIUM PHOSPHATE MM 7.5 MMOL in IV NS 0.9% 100 ML IV SCH ×3 (09:31→11:32)
[2021-02-23] MEDS: CALCIUM CARB 600MG /VIT D 1 EACH TABLET PO SCH (09:31)
[2021-02-23] MEDS: ENSURE ENLIVE 237 ML LIQUID (VANILLA) PO SCH ×3 (09:32→17:39)
[2021-02-23] MEDS: CARVEDILOL 6.25 MG TABLET PO SCH (09:32)
[2021-02-23] MEDS: AMLODIPINE BESYLATE 5 MG TABLET PO SCH (09:32)
[2021-02-23] MEDS: ASCORBIC ACID 500 MG TABLET PO SCH (09:33)
[2021-02-23] MEDS: PROSOURCE / PROSTAT (PYXIS) 30 ML UDC PO SCH ×2 (09:33→17:39)
[2021-02-23] MEDS: MULTIVIT W/MINERALS 1 TAB TABLET PO SCH (09:33)
[2021-02-23] MEDS: PAROXETINE HCL 10 MG TABLET PO SCH (09:33)
[2021-02-23] MEDS: FLUTICASONE/VILANTEROL 1 EACH BLST.W.DEV IH SCH (09:34)
[2021-02-23] MEDS: ZINC SULFATE 220 MG CAPSULE PO SCH (09:34)
[2021-02-23] MEDS: K PHOS NEUTRAL 250 MG TABLET PO ONE ×2 (11:00→11:19)
[2021-02-23] MEDS: POTASSIUM CHLORIDE 20 MEQ TAB.PRT.SR PO SCH ×3 (11:19→12:39)
--- NOTE | 2021-02-23 11:46 | NUR ---
PATIENT FAMILY ASKING IF PATIENT CAN HAVE SECOND COVID VACCINE THIS HOSPITALIZATION. RUEL BURGOS RN
--- NOTE | 2021-02-23 13:22 | NUR ---
Patient refused second bag of potassium phosphate via peripheral intravenous line, and only accepted 1st bag of potassium phosphate, potassium phosphate 250mg by mouth, and 20 meq potassium by mouth. Rodolfo Cheney RN
[2021-02-23 13:31] LABS: EOSINOPHILS % (MANUAL) 2 % (0-4); LYMPHOCYTES % (MANUAL) 14 % (16-48); MONOCYTES % (MANUAL) 11 % (0-11.0); NEUTROPHILS % (MANUAL) 73 (42-76)
[2021-02-23] MEDS ORDERED: CEFT1VIA14 IJ (14:18)
--- NOTE | 2021-02-23 15:11 | NUR ---
Report given to GODWIN Farley, at [facility]. Patient notified of transfer, verbalizes understanding. Rodolfo Cheney RN
[2021-02-23] MEDS: CEFTRIAXONE 1 G in IV D5W 50 ML IV SCH (17:38)
[2021-02-23 18:50] VITALS: BP 142/73
--- NOTE | 2021-02-23 19:45 | NUR ---
DISCHARGE NOTE PATIENT DISCHARGE TO [facility] AT THIS TIME. VIA [facility], ACCOMPANIED BY 2 RIB CUTTER. DENIES ANY PAIN OR DISCOMFORT. VITAL SIGNS STABLE. NO BELONGINGS NOTED. LEFT IN STABLE CONDITION.
== END 2021-02-23 19:45 | DRG 689 ==
LOC: ER 17:17 → MEDSG1 19:50
PROVIDERS: ADMIT Student in an Organized Health Care Education/Training Program; ATTEND Nurse Practitioner Acute Care
DX: N39.0 Urinary tract infection, site not specified (principal); G92 Toxic encephalopathy; E44.0 Moderate protein-calorie malnutrition; E87.1 Hypo-osmolality and hyponatremia; Z68.1 Body mass index [BMI] 19.9 or less, adult; C79.9 Secondary malignant neoplasm of unspecified site; J45.909 Unspecified asthma, uncomplicated; I10 Essential (primary) hypertension; Z87.891 Personal history of nicotine dependence; Z90.12 Acquired absence of left breast and nipple; D64.9 Anemia, unspecified; E83.39 Other disorders of phosphorus metabolism; E83.52 Hypercalcemia; E86.1 Hypovolemia; E87.6 Hypokalemia; D72.829 Elevated white blood cell count, unspecified; R74.01 Elevation of levels of liver transaminase levels; R23.4 Changes in skin texture; L89.156 Pressure-induced deep tissue damage of sacral region; B96.4 Proteus (mirabilis) (morganii) as the cause of diseases classified elsewhere; S70.912A Unspecified superficial injury of left hip, initial encounter; X58.XXXA Exposure to other specified factors, initial encounter; Y93.9 Activity, unspecified; Y92.129 Unspecified place in nursing home as the place of occurrence of the external cause; Z92.21 Personal history of antineoplastic chemotherapy; Z79.899 Other long term (current) drug therapy; C50.912 Malignant neoplasm of unspecified site of left female breast; Z20.822 Contact with and (suspected) exposure to COVID-19
CPT/HCPCS: 36415; 70450-TC; 71045-TC; 80048-TC; 80053-TC; 80061-TC; 80076-TC; 81001; 82306; 82330; 83605-TC; 83735-TC; 83970; 84100-TC; 84155; 84165; 84443-TC; 85025-TC; 87081-TC; 87086-TC; 87186-TC; 97112-TC; 97530-TC; A6403; A6407; G0378; J0696; J1650; J3490; J7030; J7050; J7060; Q0167; U0003